=== PATIENT | female | born 1965 ===

== ENCOUNTER 2017-12-14 18:57 | Emergency (ER) | payer OTHER ==
[2017-12-14 18:58] VITALS: BMI 26.8
[2017-12-14] MEDS ORDERED: Sodium Chloride 0.9% 1,000 ML IV STA (20:16)
--- NOTE | 2017-12-14 20:39 | ED PDOC ---
HPI: General Adult Time Seen by Provider: 12/14/17 19:43 Chief Complaint (Nursing): Dizziness/Lightheaded Chief Complaint (Provider): Dizziness/Lightheaded History Per: Patient History/Exam Limitations: no limitations Onset/Duration Of Symptoms: Days (x1) Current Symptoms Are (Timing): Still Present Additional Complaint(s): 52 year old female with no significant past medical history, who presents to the ED complaining of headache and dizziness x1 day. Also states she feels very tired and light headed, and has been having palpitations since this morning. States she has never experienced this before. Also complaining of intermittent left sided abdominal pain with associated nausea, but denies vomiting, diarrhea , or fevers. PMD: None provided Past Medical History Reviewed: Historical Data, Nursing Documentation, Vital Signs Vital Signs: Last Vital Signs Temp 98.0 F 12/14/17 19:03 Pulse 75 12/14/17 19:03 Resp 16 12/14/17 19:03 BP 136/96 H 12/14/17 19:03 Pulse Ox 97 12/14/17 20:43 - Medical History PMH: Gastritis, Gall Bladder Disease (cholelithiasis) Denies: Chronic Kidney Disease - Surgical History Surgical History: Back Surgery, - Family History Family History: States: Unknown Family Hx - Immunization History Hx Tetanus Toxoid Vaccination: No Hx Influenza Vaccination: No Hx Pneumococcal Vaccination: No - Home Medications Home Medications: Ambulatory Orders Medication Instructions Recorded Famotidine [Pepcid] 20 mg PO DAILY #20 tab 02/16/16 Ondansetron ODT [Zofran ODT] 1 odt PO BID PRN #10 odt 02/16/16 Ibuprofen [Motrin Tab] 800 mg PO Q6H PRN #20 tab 11/07/16 oxyCODONE/Acetaminophen [Percocet 1 ea PO Q6H PRN #15 tab 11/07/16 5/325 mg Tab] - Allergies Allergies/Adverse Reactions: Allergies Allergy/AdvReac Type Severity Reaction Status Date / Time Penicillins Allergy RASH Verified 11/07/16 11:26 Review of Systems ROS Statement: Except As Marked, All Systems Reviewed And Found Negative Constitutional: Negative for: Fever Cardiovascular: Positive for: Light Headedness Gastrointestinal: Positive for: Nausea, Abdominal Pain. Negative for: Vomiting , Diarrhea Neurological: Positive for: Headache, Dizziness Physical Exam - Reviewed Nursing Documentation Reviewed: Yes Vital Signs Reviewed: Yes - Physical Exam Appears: Positive for: Non-toxic, No Acute Distress (anxious appearing) Head Exam: Positive for: ATRAUMATIC, NORMAL INSPECTION, NORMOCEPHALIC Skin: Positive for: Normal Color, Warm, Dry. Negative for: Rash Eye Exam: Positive for: Normal appearance, EOMI, PERRL Neck: Positive for: Normal, Painless ROM, Supple Cardiovascular/Chest: Positive for: Regular Rate, Rhythm. Negative for: Murmur Respiratory: Positive for: Normal Breath Sounds. Negative for: Respiratory Distress Gastrointestinal/Abdominal: Positive for: Normal Exam, Bowel Sounds, Soft. Negative for: Tenderness Back: Positive for: Normal Inspection. Negative for: L CVA Tenderness, R CVA Tenderness, Vertebral Tenderness Extremity: Positive for: Normal ROM. Negative for: Pedal Edema, Deformity Neurologic/Psych: Positive for: Alert, Oriented (x3). Negative for: Motor/ Sensory Deficits - Laboratory Results Result Diagrams: 12/14/17 20:45 12/14/17 20:45 - ECG O2 Sat by Pulse Oximetry: 97 (RA) Pulse Ox Interpretation: Normal Medical Decision Making Medical Decision Making: Time: 20:16 Initial Impression: Anemia vs anxiety vs cardiac abnormalities Initial Plan: --Blood type and screen --CMP --TSH --Troponin I --CBC w/ differential --Chest X-Ray 2 views --Sodium Chloride 0.9% 1,000 mls --Reglan 10 mg IVPB --Toradol 30 mg IVP --Urinalysis --Reevaluation Time: 22:30 Upon reevaluation patient is stable for discharge home. Advised patient she has possible hypothyroidism and advised follow up with PMD in 1-2 days. Scribe Attestation: Documented by Messi Cronin, acting as a scribe for Robert Yao MD. Provider Scribe Attestation: All medical record entries made by the Scribe were at my direction and personally dictated by me. I have reviewed the chart and agree that the record accurately reflects my personal performance of the history, physical exam, medical decision making, and the department course for this patient. I have also personally directed, reviewed, and agree with the discharge instructions and disposition. Disposition - Clinical Impression Clinical Impression: Dizziness, Hypothyroid - Patient ED Disposition Is Patient to be Admitted: No Counseled Patient/Family Regarding: Studies Performed, Diagnosis, Need For Followup - Disposition Referrals: [facility] [Outside] Disposition: Routine/Home Disposition Time: 22:30 Condition: IMPROVED Instructions: Hypothyroidism (ED), Dizziness (ED) Forms: [facility] ([place]ican) Print Language: GERMAN
[2017-12-14 20:53] LABS: BASO % 0.7 % (0.0-2.0); EOS # 0.1 K/uL (0.0-0.7); EOS % 1.1 % (0.0-4.0); HEMOGLOBIN 12.2 g/dL (12.0-16.0); LYMPH # 2.4 K/uL (1.0-4.3); LYMPH % 42.8 % (20.0-40.0); MEAN CORPUSCULAR HEMOGLOBIN 28.7 pg (27.0-31.0); MEAN PLATELET VOLUME 9.5 fl (7.2-11.7); MONO # 0.4 K/uL (0.0-0.8); MONO % 6.6 % (0.0-10.0); NEUT # 2.8 K/uL (1.8-7.0); NEUT % 48.8 % (50.0-75.0); NRBC % 0.2 % (0.0-0.0); RBC 4.26 Mil/uL (3.80-5.20); RED CELL DISTRIBUTION WIDTH 12.9 % (11.5-14.5); WHITE BLOOD COUNT 5.6 K/uL (4.8-10.8)
[2017-12-14 20:56] LABS: SQUAMOUS EPITHIAL 1 /hpf (0-5); URINE BILIRUBIN NEGATIVE (NEGATIVE); URINE BLOOD SMALL (NEGATIVE); URINE CLARITY CLEAR (Clear); URINE COLOR COLORLESS (YELLOW); URINE GLUCOSE (UA) NEG (Normal); URINE LEUKOCYTE ESTERASE NEG Leu/uL (Negative); URINE NITRATE NEGATIVE (NEGATIVE); URINE PROTEIN NEGATIVE (NEGATIVE); URINE UROBILINOGEN 0.2-1.0 mg/dL (0.2-1.0)
[2017-12-14 21:08] LABS: ALB/GLOB RATIO 1.2 (1.0-2.1); ALBUMIN 4.5 g/dL (3.5-5.0); ALT/SGPT 29 U/L (9-52); AST/SGOT 21 U/L (14-36); BLOOD UREA NITROGEN 18 mg/dl (7-17); CALCIUM 9.8 mg/dL (8.4-10.2); GFR AFRICAN-AMERICAN > 60; GFR NON-AFRICAN AMERICAN > 60
[2017-12-14 23:40] VITALS: BP 136/81; PULSE 81; RESP 17; TEMP 98.1
[2017-12-15 04:42] VITALS: O2SAT 97
--- NOTE | 2017-12-15 08:48 | RAD ---
HISTORY: dizzness, palpitations COMPARISON: No prior. TECHNIQUE: Chest PA and lateral FINDINGS: LUNGS: No active pulmonary disease. PLEURA: No significant pleural effusion identified. No pneumothorax apparent. CARDIOVASCULAR: Normal. OSSEOUS STRUCTURES: No significant abnormalities. VISUALIZED UPPER ABDOMEN: Normal. OTHER FINDINGS: None. IMPRESSION: No active disease.
--- NOTE | 2017-12-15 09:04 | CARD ---
APPROVED REPORT EKG Measurement Heart [id number] <Conclusion> Normal sinus rhythm Normal ECG
== END 2017-12-14 22:35 | disposition home or self-care (01) ==
LOC: H.ER 18:57
DX: R42 Dizziness and giddiness (principal); E03.9 Hypothyroidism, unspecified; Z88.0 Allergy status to penicillin
CPT/HCPCS: 71046; 80053; 81003; 81025; 84443; 84484; 85025; 86850; 86900; 93005; 96361; 96374; 96375; 99284; J1885; J2765; J7040